=== PATIENT | male | born 1985 | race American Indian/Alaskan Native ===

== ENCOUNTER 2017-08-30 01:44 | Emergency (ER) | payer SELFPAY ==
[2017-08-30] MEDS ORDERED: ZOFRAN IV ONE (02:04)
[2017-08-30] MEDS ORDERED: SUBLIMAZE IV ONE (02:04)
[2017-08-30] MEDS ORDERED: NACL 0.9% 1000 ML 1,000 ML IV ONE (02:05)
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
[2017-08-30 02:55] LABS: Basophils % (Auto) 0.3 % (0.0-1.8); Eosinophils % (Auto) 0.7 % (0.0-4.3); Hematocrit 40.5 % (35.5-45.6); Hemoglobin 13.3 gm/dl (11.8-15.2); Lymphocytes # (Auto) 1.5 K/mm3 (1.2-5.4); Lymphocytes % (Auto) 25.5 % (13.4-35.0); Mean Corpuscular HGB Conc 33 % (32-34); Mean Corpuscular Hemoglobin 29 pg (28-32); Mean Corpuscular Volume 89 fl (84-94); Monocytes # (Auto) 0.5 K/mm3 (0.0-0.8); Monocytes % (Auto) 8.1 % (0.0-7.3); Platelet Count 226 K/mm3 (140-440); Red Blood Count 4.54 M/mm3 (3.65-5.03); Red Cell Distribution Width 13.7 % (13.2-15.2)
[2017-08-30 03:04] LABS: INR 1.04 (0.87-1.13); Partial Thromboplastin Time 28.8 Sec. (24.2-36.6)
[2017-08-30 03:09] LABS: Alanine Aminotransferase 30 units/L (7-56); BUN/Creatinine Ratio 11; Blood Urea Nitrogen 10 mg/dL (9-20); Calcium 7.9 mg/dL (8.4-10.2); Hemolysis Index 6
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
[2017-08-30] MEDS ORDERED: DILAUDID IV ONE (04:26)
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
[2017-08-30] MEDS ORDERED: MARCAINE 0.5% INFILTRATI ONE ×2 (04:56→05:20)
[2017-08-30] MEDS ORDERED: NACL 0.9% 500 ML IR ONE (04:56)
[2017-08-30] MEDS ORDERED: XYLOCAINE 1% 20 mL ONE (04:56)
[2017-08-30] MEDS ORDERED: NACL 0.9% IR ONE (05:20)
[2017-08-30] MEDS ORDERED: XYLOCAINE 1% 20 mL INFILTRATI ONE (05:20)
[2017-08-30] MEDS ORDERED: ANTIBIOTIC OINT TP ONE (05:44)
[2017-08-30 06:59] VITALS: BP 119/71
== END 2017-08-30 07:03 | disposition home or self-care (01) ==
LOC: ED 01:44
DX: S00.81XA Abrasion of other part of head, initial encounter (principal); S90.31XA Contusion of right foot, initial encounter; S39.91XA Unspecified injury of abdomen, initial encounter; V09.9XXA Pedestrian injured in unspecified transport accident, initial encounter; Y93.89 Activity, other specified; Y92.89 Other specified places as the place of occurrence of the external cause; Y99.8 Other external cause status
CPT/HCPCS: 12013; 36415; 70450; 70486; 71045; 72125; 73620; 74177; 80053; 85025; 85610; 85730; 86850; 86900; 86901; 96361; 96374; 96375; 99284; G0480; J1170; J2405; J3010; J7030; Q9967; 80320

== ENCOUNTER 2017-09-06 14:05 | Emergency (ER) | payer SELFPAY ==
[2017-09-06 14:16] VITALS: BP 128/72
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
== END 2017-09-06 15:15 | disposition home or self-care (01) ==
LOC: ED 14:05
DX: Z48.01 Encounter for change or removal of surgical wound dressing (principal); Z48.02 Encounter for removal of sutures